=== PATIENT | male | born 1965 | race Caucasian/White ===

== ENCOUNTER 2017-01-15 15:23 | Emergency (ER) | payer OTHER ==
--- NOTE | ~2017-01-15 | CR141 ---
[facility] A Service of [facility] RADIOLOGY TEXT RESULTS PATIENT: SUE ADLER LOCATION: [facility] : 61 UNIT #: [id number] AGE: [address]: Jennyfer Rausch SEX: M ORDER DR: [id number] [facility] [address] [place], [place] [address] [id number] E MR#: [id number] Acc #: [id number] NAME: SUE ADLER : 1965 SEX: M STUDY DATE/TIME: 01/15/2017 15:59 UNIT: [facility] ROOM: STUDY DESCRIPTION: CR Hand Min 3 Views Lt Attending Physician: Jennyfer Rausch Pa-C Ordering Physician: Jennyfer Rausch Pa-C Primary Care Physician: Phyllis Hodges M.D. MEDICAL IMAGING REPORT This report is preliminary unless electronic signature is present EXAM Left hand 3 views INDICATIONS Laceration to base of fourth digit today. Pain. Possible foreign body. No comparisons. FINDINGS There is no evidence of radiopaque foreign body. There is soft tissue swelling of the base of the fourth digit. Joint spaces are preserved. No fracture or dislocation. IMPRESSION No fracture or radiopaque foreign body. Dictated by... Ebenezer Frausto M.D. THIS IS AN ELECTRONICALLY VERIFIED REPORT Ebenezer Frausto M.D. at 01/16/2017 7:15 AM NORTH/ezequiel TD: 01/15/2017 23:06 JOB #: [id number] MEDICAL IMAGING REPORT Page 1 of 1 COPY
[~2017-01-15 15:23] MED LIST: ALPRAZOLAM PO; ALTACE PO; AMBIEN PO; AMLODIPINE BESYL5 MG PO; ASPIRIN PO; ASPIRIN81 M2 PO; ATRIPLA1 TAB BC; CHANTIX PO; CLOPIDOGREL75 MG PO; COMBIVIR TABLET1 TAB PO; COUMADIN PO; COUMADIN4 MG PO; GLUCOPHAGE XR500 MG PO; KALETRA PO; MELATONIN3 MG PO; METFORMIN HCL1000 M1 PO; METOPROLOL TAR25 MG DOB; NEURONTIN600 MG DOB; NEXIUM PO; NIASPAN PO; NITROGLYCERIN0.4 MG SL; NORCO 5/325 TAB1 TAB PO; PRISTIQ PO; RANITIDINE HCL150 M1 PO; TRICOR PO; VITAMIN D50000 UNIT PO; VYTORIN 10/40 T1 TAB PO; XANAX1 MG PO; ZANTAC150 M1 PO; ZESTRIL10 M1 PO
== END 2017-01-15 16:46 | disposition home or self-care (01) ==
LOC: CFTX 15:23 → CED 15:23 → CFTX 15:42 → CED 15:42 → CFTX 16:46
DX: S61.412A Laceration without foreign body of left hand, initial encounter (principal); I11.9 Hypertensive heart disease without heart failure; I51.9 Heart disease, unspecified; E11.9 Type 2 diabetes mellitus without complications; W25.XXXA Contact with sharp glass, initial encounter; Y92.009 Unspecified place in unspecified non-institutional (private) residence as the place of occurrence of the external cause
CPT/HCPCS: 12001; 73130; 90471; 90715; 99283